=== PATIENT | female | born 2005 | race Caucasian/White ===

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

== ENCOUNTER 2024-01-08 14:48 | Emergency (ER) | payer BC, SELFPAY ==
[2024-01-08 15:00] VITALS: BP 110/72; PULSE 61; RESP 18; TEMP 37.1; O2SAT 96; BMI 28.3
[2024-01-08 15:18] LABS: UTC Strep Screen (Rapid) Positive (Negative)
--- NOTE | 2024-01-08 15:21 | EXP.UTC ---
Discharge Plan Disposition Patient Disposition: Home, Self-Care Condition: Good Prescriptions Prescriptions: New amoxicillin 875 mg tablet 875 mg PO Q12H Qty: 20 0RF No Action aspirin 81 mg Tablet,Chewable 81 mg PO DAILY Qelbree 200 mg capsule,extended release 24hr 200 mg PO DAILY Referrals Follow up/Referrals: Omar Reeves [Primary Care Provider] - See instructions Activity Restrictions/Add. Instructions Additional Instructions/Restrictions: *Monitor Temp, Over the counter Motrin or Tylenol as directed/as needed Tylenol every 4 hours and Motrin every 6 hours (as long as your family doctor has told you that you can take it) for fever or pain. and straight to ER if unable to lower temp less than 101.0 after medication given *Warm salt water gargles may help to soothe the throat *Throat Lozenges? *Warm fluids like tea with honey may help to soothe the throat? *Sleep elevated *Humidifier/Vaporizer If you did not take Penicillin shot or was unable to, start taking antibiotic immediately and make sure that you take it for the FULL length of time although you should start to feel better in 24-48 hours *change toothbrush and toothpaste 24-48 hours after starting to take antibiotics so you do not reinfect yourself Monitor Temp. Tylenol and/or Ibuprofen as needed. ER if fever is no less than 101 despite alternating Tylenol and Ibuprofen * Encourage fluids, water, Gatorade, powerade, pedialyte if infant/toddler/or child *Cold fluids, popsicles and ice cream may feel good on his throat Follow up IMMEDIATELY for new or worsening symptoms or no Noticeable improvement over the next 48-72 hours. 911 for difficulty breathing or swallowing Clinical Impressions Clinical Impression: Strep throat Instructions Patient Instructions: Strep Throat, DI for Strep Throat Discharge ED Provider: Ileana Lua [facility] [place] HPI General Stated complaint: sore throat, congestion headache Time Seen by Provider: 01/08/24 15:21 Description of Symptoms (Recalled from Triage Doc. by RN): Patient states that she has been having sore throat, nasal congestion and headache and strep throat is going around Related Data Home Medications Medication Instructions Recorded Confirmed aspirin 81 mg chewable tablet 81 mg PO DAILY Blood thinner 09/28/22 01/08/24 viloxazine 200 mg capsule,extended 200 mg PO DAILY 07/31/23 01/08/24 release 24 hr (Qelbree) Previous Rx's Medication Instructions Recorded amoxicillin 875 mg tablet 875 mg PO Q12H #20 tabs 01/08/24 Allergies Allergy/AdvReac Type Severity Reaction Status Date / Time hydrocodone Allergy Verified 01/08/24 15:22 oxycodone Allergy Verified 01/08/24 15:22 [facility] Disclaimer: The information contained in this section may have been updated after the patient was seen, as this information can be updated by other users. Medical History (Updated 01/08/24 @ 15:24 by Ileana Lua APRN) Anxiety History of left heart catheterization (LHC) Allergies Heart murmur Surgical History History of open heart surgery Family History Other No significant family history Social History Smoking Status: Unknown if ever smoked alcohol intake: never current occupational status: other Travel in the last 8 weeks: None ROS Obtained: Yes All systems reviewed & no additional complaints except as documented and Yes Systems reviewed as appropriate & no additional complaints except as documented Constitutional Constitutional: Reports system reviewed and no additional complaints, except as documented, Reports as per HPI and Reports headache(s) ENT Ears, Nose, Mouth, and Throat: Reports system reviewed and no additional complaints, except as documented, Reports as per HPI, Reports headache(s), Reports nasal congestion, Reports nasal discharge and Reports sore throat Cardiovascular Cardiovascular: Reports system reviewed and no additional complaints, except as documented and Reports as per HPI Respiratory Respiratory: Reports system reviewed and no additional complaints, except as documented and Reports as per HPI Gastrointestinal Gastrointestingal: Reports system reviewed and no additional complaints, except as documented and as per HPI Neurologic Neurologic: Reports headache(s) Physical Exam General General appearance: alert and in no apparent distress ENT ENT exam: Present mucous membranes moist Expanded ENT Exam Throat exam: Present tonsillar erythema Respiratory Respiratory exam: Present normal lung sounds bilaterally; Absent respiratory distress or wheezes Cardiovascular Cardiovascular exam: Present regular rate, normal rhythm and normal heart sounds Neurological Exam Neurological exam: Present alert, oriented X3 and normal gait Medical Decision Making Victorino Inquiry Pt receiving controlled substance: No Victorino was queried for this patient: No Lab Data Lab results reviewed: Yes I reviewed the patient's lab results. Lab Results 01/08/24 15:16: Strep Scn [facility] Positive A
[2024-01-08 15:57] VITALS: BP 110/72; PULSE 61; RESP 18; TEMP 37.1; O2SAT 96
== END 2024-01-08 15:57 | disposition home or self-care (01) ==
PROVIDERS: Emergency Provider Nurse Practitioner; PCP Pediatrics
DX: J02.0 Streptococcal pharyngitis (principal); R07.0 Pain in throat; R51.9 Headache, unspecified; R09.81 Nasal congestion
CPT/HCPCS: 87880; 99212; 99214; G0463

== ENCOUNTER 2024-07-22 15:01 | Emergency (ER) | payer BC, SELFPAY ==
[2024-07-22 16:05] VITALS: BP 128/66; PULSE 79; RESP 19; TEMP 36.7; O2SAT 99; BMI 30.4
--- NOTE | 2024-07-22 16:15 | ED_ITS ---
Discharge Plan Disposition Patient Disposition: Home, Self-Care Condition: Good Prescriptions Prescriptions: New clindamycin HCl 300 mg capsule 300 mg PO Q8H 10 Days Qty: 30 0RF mupirocin 2 % ointment 1 applic topical TID 10 Days Qty: 22 0RF Rx Instructions: apply to skin around nail on left little finger No Action aspirin 81 mg Tablet,Chewable 81 mg PO DAILY Qelbree 200 mg capsule,extended release 24hr 200 mg PO DAILY loratadine [Claritin] 10 mg Tablet 10 mg PO DAILY Referrals Follow up/Referrals: Omar Reeves [Primary Care Provider] - See instructions Activity Restrictions/Add. Instructions Additional Instructions/Restrictions: Soak in warm water and epson salt Take oral antibiotics as prescribed Use topical antibiotics as prescribed Follow up with your Family Doctor if no improvement or any worsening of symptoms Do not poke or stick anything into your skin this can lead to infection Call back to the [facility] in 3 days to make sure your culture is back and on the right medication Clinical Impressions Clinical Impression: Paronychia of finger Instructions Patient Instructions: Clindamycin, Mupirocin Print Language Print Language: [place] Discharge ED [place] [facility] [place] General Stated complaint: LT pimky irritation Mode of Arrival: Ambulatory Source of Information: Patient Limitations: No Limitations Time Seen by Provider: 07/22/24 16:16 Description of Symptoms (Recalled from Triage Doc. by RN): PATIENT C/O SWELLING, REDNESS AND PAIN TO TIP OF LEFT PINKY X 3-4 DAYS HEENT Symptoms (Recalled from RN notes): No Resp Symptoms (Recalled from RN notes): No Skin Symptoms (Recalled from RN notes): Yes MS Symptoms (Recalled from RN notes): No Functional Status (Recalled from RN notes): WNL History of Present Illness Provider Complaint: Patient states that she had a hangnail on her left little finger and she bit it and pulled it out then started having some redness, swelling and pain in the tip of the finger States that family member poked it last night with a needle to try to see if anything was in it but nothing come out and today it wasnt any better and she was going to poke it again but family talked her into coming in and getting some antibiotic first Related Data Home Medications ?Medication ?Instructions ?Recorded ?Confirmed aspirin 81 mg chewable tablet 81 mg PO DAILY Blood thinner 09/28/22 07/22/24 viloxazine 200 mg capsule,extended 200 mg PO DAILY 07/31/23 07/22/24 release 24 hr (Qelbree) loratadine 10 mg tablet (Claritin) 10 mg PO DAILY 07/22/24 07/22/24 Previous Rx's ?Medication ?Instructions ?Recorded clindamycin HCl 300 mg capsule 300 mg PO Q8H 10 days #30 caps 07/22/24 mupirocin 2 % topical ointment 1 applic topical TID 10 days #22 07/22/24 grams Allergies Allergy/AdvReac Type Severity Reaction Status Date / Time hydrocodone Allergy Verified 01/08/24 15:22 oxycodone Allergy Verified 01/08/24 15:22 Worker's Comp Is this a Worker's Comp case?: No [facility] Disclaimer: The information contained in this section may have been updated after the patient was seen, as this information can be updated by other users. Medical History (Updated 07/22/24 @ 16:34 by Ileana Lua APRN) Anxiety History of left heart catheterization (LHC) Allergies Heart murmur Surgical History History of open heart surgery Family History Other No significant family history Social History Smoking Status: Unknown if ever smoked alcohol intake: never current occupational status: other Travel in the last 8 weeks: None ROS Obtained: Yes All systems reviewed & no additional complaints except as documented and Yes Systems reviewed as appropriate & no additional complaints except as documented Constitutional Constitutional: Reports system reviewed and no additional complaints, except as documented, Reports as per HPI and Denies fever(s) Eyes Eyes: Reports system reviewed and no additional complaints, except as documented and Reports as per HPI ENT Ears, Nose, Mouth, and Throat: Reports system reviewed and no additional complaints, except as documented and Reports as per HPI Cardiovascular Cardiovascular: Reports system reviewed and no additional complaints, except as documented and Reports as per HPI Respiratory Respiratory: Reports system reviewed and no additional complaints, except as documented and Reports as per HPI Gastrointestinal Gastrointestingal: Reports system reviewed and no additional complaints, except as documented and as per HPI Musculoskeletal Musculoskeletal: Reports system reviewed and no additional complaints, except as documented, Reports as per HPI and Reports other (infected left little finger) Physical Exam General General appearance: alert and in no apparent distress ENT ENT exam: Present normal exam, normal oropharynx, mucous membranes moist and TM's normal bilaterally Respiratory Respiratory exam: Present normal lung sounds bilaterally; Absent respiratory distress or wheezes Cardiovascular Cardiovascular exam: Present regular rate, normal rhythm and normal heart sounds Abdominal Exam Abdominal exam: Present soft and normal bowel sounds; Absent distention, tenderness or guarding Expanded Upper Extremity Exam Left: Hand L/R back image: 2 1. redness, area opened in UTC. purulent drainage with foul odor noted Sample collected and sent to lab for Culture Neurological Exam Neurological exam: Present alert, oriented X3 and normal gait Medical Decision Making Medical Records Screening: Per USPSTF and CDC recommendations, given the prevalence of disease in our region, it is our hospital?s policy to screen for HIV and viral Hepatitis for all patients aged 18 and over and those with ongoing risk factors. Victorino Inquiry Pt receiving controlled substance: No Victorino was queried for this patient: No Vital Signs: 07/22/24 16:05 Temperature 98.1 F Temperature Source Oral Pulse Rate [Left Brachial] 79 Respiratory Rate 19 Blood Pressure [Left Arm] 128/66 Blood Pressure Mean [Left Arm] 86 Blood Pressure Source [Left Arm] Automatic Cuff Blood Pressure Position [Left Arm] Sitting 02 Sat by Pulse Oximetry 99 Oxygen Delivery Method Room Air Medical Decision Narrative: medication discussed with pharmacy
[2024-07-22 16:40] VITALS: BP 128/66; PULSE 79; RESP 19; TEMP 36.7; O2SAT 99
--- NOTE | 2024-07-26 16:05 | PC.NURSE ---
Addendum entered by Ariane Rizzo RN 07/26/24 16:10: PRESCRIPTION UNABLE TO BE CALLED IN TO PATIENT'S LISTED PHARMACY D/T IT BEING CLOSED WITH NO VOICEMAIL. PRESCRIPTION TO BE SENT IN TOMORROW BY PRESCRIBING PROVIDER. Original Note: REVIEWED PATIENT'S WOUND CULTURE WITH Caron CUEVAS APRN. PATIENT'S CURRENT ANTIBIOTIC IS CLINDAMYCIN WHICH THE ORGANISM IS RESISTANT TO. ANTIBIOTIC CHANGED TO KEFLEX PER Caron CUEVAS APRN AND CALLED INTO PHARMACY. ATTEMPTED TO NOTIFY PATIENT OF RESULT AND NEW ANTIBIOTIC WITH NO ANSWER. UNABLE TO LEAVE VOICEMAIL D/T PATIENT'S VOICEMAIL NOT BEING SET UP. WILL ATTEMPT LATER TO CALL PATIENT.
== END 2024-07-22 16:42 | disposition home or self-care (01) ==
PROVIDERS: Emergency Provider Nurse Practitioner; PCP Pediatrics
DX: L03.012 Cellulitis of left finger (principal); R22.32 Localized swelling, mass and lump, left upper limb; M79.645 Pain in left finger(s)
CPT/HCPCS: 87070; 87077; 87186; 87205; 99212; G0381

== ENCOUNTER 2025-02-26 12:59 | Outpatient (RCR) | payer BC, MEDICAID, SELFPAY | END 2025-04-02 08:00 | disposition home or self-care (01) | LOC: CR 12:59 | PROVIDERS: Visit Provider Internal Medicine | DX: Q21.3 Tetralogy of Fallot (principal); Z98.890 Other specified postprocedural states; Z87.74 Personal history of (corrected) congenital malformations of heart and circulatory system | CPT/HCPCS: 93798 ==